=== PATIENT | female | born 1935 | race Caucasian/White ===

== ENCOUNTER → 2016-09-01 | Outpatient (CLI) | payer MEDICARE | END | disposition home or self-care (01) | LOC: RAD.S 13:00 | DX: Z12.31 Encounter for screening mammogram for malignant neoplasm of breast (principal) ==

== ENCOUNTER 2016-09-28 14:33 | Emergency (ER) | payer MEDICARE ==
--- NOTE | 2016-10-06 19:35 | ER ---
ADMIT: 09/28/2016 RM/LOC: ER [facility] MR#: [id number] [id number] MARGARITA ZUÑIGA [address] [place] [address] Emergency Room Report SEX: F AGE: 81 : 1935 DATE: 09/28/2016 SUBJECTIVE: The patient is a 81-year-old female, vomiting for the last 3 hours. She has some nausea. Denies any abdominal pain. She has a history of GERD, CKD stage 3. She had a hysterectomy, gallbladder, cholecystectomy, bladder prolapse with surgery 3 of them for that matter. ALLERGIES: SHE IS ALLERGIC TO VICODIN, CIPRO, NIACIN, AND SULFA. MEDICATIONS: Include: 1. Vitamin D. 2. Multivitamin. 3. Fish oil. 4. Loratadine. 5. Benztropine. 6. Estrace. 7. Nexium. 8. Risperidone. 9. Tramadol. 10.Probiotic. PHYSICAL EXAMINATION: VITAL SIGNS: Blood pressure is 148/79, pulse 94, respirations 20, temperature is 98.8, O2 sats 100%. Physical examination is totally negative. There is no specific area of discomfort or pain in her abdomen. No flank pain. Her extremities are well perfused. No edema. Her UA looks totally normal. Her CMP shows a BUN of 41 with a creatinine of 1.7. Glomerular filtration 28. In August 28, she had a creatinine of 1.51. Her WBC is totally negative. DIAGNOSIS: Mild dehydration, nausea, and vomiting most likely viral. IV fluids were very helpful. She got a bag and she felt much better, ready to be released. She requested release to home. Daughter advised to take her to her primary provider, Dr. Grigsby. Continue her medications. I asked her if she wanted some antiemetic for home use, but she declined it. Return if symptoms worsen or if unable to stop her vomiting on her own. NANCY Caballero / Rohan Garzon MD / pam JOB #: [id number] CC: Rohan Garzon MD, Attending Physician Tommy Grigsby MD, Family Physician
== END 2016-09-28 18:15 | disposition home or self-care (01) ==
LOC: ER 14:33
DX: E86.0 Dehydration (principal); R11.2 Nausea with vomiting, unspecified; K21.9 Gastro-esophageal reflux disease without esophagitis; N18.3 Chronic kidney disease, stage 3 (moderate); Z90.49 Acquired absence of other specified parts of digestive tract; Z90.710 Acquired absence of both cervix and uterus; Z88.8 Allergy status to other drugs, medicaments and biological substances; Z88.1 Allergy status to other antibiotic agents; Z88.2 Allergy status to sulfonamides; Z79.899 Other long term (current) drug therapy